=== PATIENT | male | born 1970 | race Caucasian/White ===

== ENCOUNTER 2020-05-18 19:54 | Inpatient (IN) | payer MEDICARE, OTHER ==
[~2020-05-18] VITALS: Ht 175.3 cm; Wt 75.7 kg
[2020-05-18] MEDS ORDERED: ACETAMINOPHEN 325 MG TABLET PO PRN (20:30)
[2020-05-18] MEDS ORDERED: MAGNESIUM HYDROXIDE 30 ML UDC PO PRN (20:30)
[2020-05-18] MEDS ORDERED: BLOOD SUGAR DIAGNOSTIC 1 EACH STRIP IN ONE (20:30)
[2020-05-18 21:00] VITALS: BP 118/51
--- NOTE | 2020-05-18 21:00 | NUR ---
GPS RN-NOTE:ADMISSION ADMITTED A 50-YR OLD MALE, FROM [facility]. ADMITTED ON 5150 FOR GD. PER HOLD, PT. ADMITTED D/T EXTREME AGITATION, BIZARRE BEHAVIOR AND TANGENTIAL THINKING. PT. PRESENTS IRRITABLE, AGITATED, AND PARANOID, WITH DELUSIONS OF PERSECUTION BY GOVERNMENT AND LOCAL POLICE DEPARTMENTS. PT STATES "I KNOW TOO DAMN MUCH, I HAVE A MILLION DOLLAR HIT OUT ON ME" AND YOUR [place] MACHINE OPERATOR WILL BE ON ARRIVAL, YOUR LIVES ARE IN DANGER". PT UNABLE TO ACCESS BASIC NEEDS D/T A MENTAL HEALTH DISORDER. UPON FACE TO FACE ASSESSMENT, PATIENT IS A/OX3, ANXIOUS, RESTLESS, HYPERVERBAL, PREOCCUPIED THOUGHTS AND LABILE MOOD. PT WAS ADVISED OF THE HOLD. PT'S RIGHTS HANDBOOK AND A GUIDE TO PRESCRIPTION MEDICATIONS GIVEN. IN NO APPARENT DISTRESS NOTED. BELONGINGS WERE INVENTORIED AND CHECKED FOR CONTRABAND. PT. IS UNDER THE PSYCHIATRIC CARE OF DR. NAVNEET RANDALL OBTAINED, AND UNDER THE MEDICAL CARE OF DR. LUEVANO. SKIN BODY ASSESSMENT DONE. PT DENIES PAIN/ DISCOMFORT. BED LOCKED AND PLACED IN LOWEST POSITION TO MAINTAIN SAFETY. FALL PRECAUTIONS IMPLEMENTED. WILL CONTINUE TO MONITOR Q15 MINS. FOR SAFETY AND BEHAVIOR. Addendum: 05/19/20 at 0527 by FLORINA TUBBS RN PATIENT DENIES SI/HI OR AVH AT THIS TIME.
[2020-05-18] MEDS: LORAZEPAM 0.5 MG TABLET PO PRN (21:52)
--- NOTE | 2020-05-18 21:53 | NUR ---
GPS-RN NOTE: ANXIETY PATIENT IS ANXIOUS AND RESTLESS. ADMINISTERED ATIVAN 0.5MG PO ORDERED. WILL CONTINUE TO MONITOR.
[2020-05-18] MEDS ORDERED: DIVA-78 PO (22:29)
[2020-05-18] MEDS ORDERED: BENZ1TAB7 PO (22:29)
[2020-05-18] MEDS ORDERED: BUDE10.22 INH (22:29)
[2020-05-18] MEDS ORDERED: OLAN20TA3 PO (22:29)
[2020-05-18] MEDS ORDERED: DIVA500T54 PO (22:29)
[2020-05-18] MEDS ORDERED: PALI9TAB PO (22:29)
[2020-05-18] MEDS ORDERED: IPRA3AMP23 IH (22:38)
[2020-05-18] MEDS ORDERED: NICO-676 TP (22:38)
[2020-05-18] MEDS: TEMAZEPAM 7.5 MG CAPSULE PO PRN (22:39)
--- NOTE | 2020-05-18 22:39 | NUR ---
GPS-RN NOTE: INSOMNIA PATIENT C/O INABILITY TO SLEEP. ADMINISTERED RESTORIL 7.5MG PO ORDERED. WILL CONTINUE TO MONITOR.
[2020-05-19] MEDS: IPRATROPIUM/ALBUTEROL INHALER IH SCH ×2 (06:00)
[2020-05-19 07:48] LABS: ALBUMIN 3.1 g/dL (3.4-5.0); BILIRUBIN,TOTAL 0.4 mg/dL (0.2-1.0); CALCIUM, SERUM 9.1 mg/dL (8.5-10.1); CREATININE 0.9 mg/dL (0.6-1.3); POTASSIUM 4.1 mmol/L (3.5-5.1); TOTAL PROTEIN, SERUM 6.7 g/dL (6.4-8.2)
[2020-05-19 07:49] LABS: CHOLESTEROL 186 mg/dL (<200); HDL CHOLESTEROL 30 mg/dL (40-60); LDL 132 mg/dL (0-99); TRIGLYCERIDES 160 mg/dL (30-150)
[2020-05-19 08:00] VITALS: BP 104/67
--- NOTE | 2020-05-19 08:40 | NUR ---
OPENING NOTES PATIENT RECEIVED WALKING AROUND IN THE HALLWAY. ALERT AND ORIENTED X 3. STABLE ON ROOM AIR, WITH NO SIGNS OF RESPIRATORY DISTRESS. NO DISTRESS NOTED AT THIS TIME. PATIENT DENIES SI/HI AT THIS TIME. DENIES ANY PAIN OR DISCOMFORT AT THIS TIME. SAFETY PRECAUTIONS IMPLEMENTED. WILL CONTINUE TO MONITOR PATIENT Q15 OBSERVATION CHECKS.
[2020-05-19] MEDS: NICOTINE PATCH (21MG) 21 MG PATCH.TD24 TD SCH (09:28)
[2020-05-19] MEDS: FLUTICASONE/VILANTEROL 1 EACH BLST.W.DEV IH SCH (11:21)
--- NOTE | 2020-05-19 12:00 | NUR ---
RN-CO: PAGED DR TOTH REGARDING PATIENT'S HOLD EXPIRING.
[2020-05-19] MEDS ORDERED: ALBUTEROL FS 2.5 MG/3 ML VIAL.NEB NEB PRN (13:30)
[2020-05-19] MEDS ORDERED: IPRATROPIUM NEB FS 0.5 MG/2.5 ML AMPUL.NEB NEB PRN (13:33)
--- NOTE | 2020-05-19 15:29 | NUR ---
GROUP NOTE: Pt was in the activity room, however refused to speak to SW. Pt appears manic and hyperverbal and was pacing back and forth.
[2020-05-19 16:00] VITALS: BP 123/76
[2020-05-19] MEDS: DIVALPROEX SODIUM 250 MG TABLET.DR PO SCH (18:33)
[2020-05-19] MEDS: BENZTROPINE MESYLATE (1 MG) 1 MG TABLET PO SCH (18:33)
[2020-05-19] MEDS: FLUPHENAZINE HCL 10 MG TABLET PO SCH (18:33)
[2020-05-19 20:08] VITALS: BP 138/88
[2020-05-19] MEDS: MAG HYDROX/AL HYDROX/SIMETH 30 ML UDC PO PRN (22:59)
[2020-05-19] MEDS: TEMAZEPAM 7.5 MG CAPSULE PO PRN (22:59)
--- NOTE | 2020-05-19 23:01 | NUR ---
GPS RN NOTES: PATIENT APPROACHED TYPESETTER PERFORATOR OPERATOR COMPLAINING OF UPSET STOMACH. MAALOX GIVEN ORDERED. PATIENT ALSO REQUESTED FOR HIS SLEEPING PILL- RESTORIL 7.5 MG GIVEN PRN ORDER. WILL MONITOR EFFICACY ON THE PATIENT.
--- NOTE | 2020-05-20 03:30 | NUR ---
NURSES NOTES: PATIENT WOKE UP FROM HIS SLEEP AND TOLD THE NURSE TO CHECK HIM SINCE HE HAS PROBLEMS BREATHING. PATIENT OBSERVED TO BE BREATHING NORMALLY AND OKAY, NO DISTRESS NOTED. VITAL SIGNS CHECKED BP150/86 HR83, O2 SAT-93%. EXPLAINED TO AND ASSURED TO HIM THAT HIS VITALS ARE OKAY OF THE MOMENT AND THAT HE WILL BE WATCHED CLOSELY FOR ANY OTHER COMPLAINS. PATIENT THEN CALM DOWN AND WENT BACK TO SLEEP.
[2020-05-20 08:00] VITALS: BP_SYST 114; BP_SYST 96; BP_DIAS 59
[2020-05-20] MEDS: FLUTICASONE/VILANTEROL 1 EACH BLST.W.DEV IH SCH (08:34)
[2020-05-20] MEDS: BENZTROPINE MESYLATE (1 MG) 1 MG TABLET PO SCH ×4 (08:35→16:26)
[2020-05-20] MEDS: DIVALPROEX SODIUM 250 MG TABLET.DR PO SCH ×4 (08:36→16:26)
[2020-05-20] MEDS: NICOTINE PATCH (21MG) 21 MG PATCH.TD24 TD SCH (08:36)
[2020-05-20] MEDS: FLUPHENAZINE HCL 10 MG TABLET PO SCH ×4 (08:36→16:26)
--- NOTE | 2020-05-20 10:32 | NUR ---
[facility]: THELMA received a call from Megan, nurse caser shoe parts at [facility] [phone] providing SW with collateral information. Megan states that pt currently lives at [facility] with his Father and states that his Father has cancer. She also states that pt at his baseline is nice and cooperative but she states that pt has been non-medication compliant and States that when pt does not take his medications he becomes bizarre, aggressive, and very delusional and psychotic. Per Megan, pt is currently on 234mg of Invega Sustenna and states that pt receives it every 21 days and it is due on Saturday05/23/20. THELMA informed Megan that pt is currently refusing medications and that pt has refused to speak with SW and pt is very aggressive and agitated and delusional. She states that she will fax SW pts current medication list. Megan states that pt will return home and that she will be following up with pt at the hospital.
--- NOTE | 2020-05-20 11:55 | NUR ---
WOUND CARE CONSULT: PT REFUSED SKIN ASSESSMENT AND WHEN ASKED ABOUT REDNESS ON HIS FACE HE REPLIED: "I BLEACH MY SKIN LIKE BIRGIT RAINEY. GOT A PROBLEM WITH THAT?" PT IS AMBULATORY. CURRENT MERLINE SCORE IS 22. WILL SEE PRN.
--- NOTE | 2020-05-20 12:06 | NUR ---
INITIAL DISCHARGE PLAN: Per pts nurse pillowcase cutter Elías from [facility] [phone] she states pt will return home [address] [address] once stable for discharge. THELMA will help form a safe and proper discharge in collaboration with . Addendum: 05/20/20 at 1206 by SONIA RENEE Megan nurse pillowcase cutter at [facility] [phone]
[2020-05-20 16:00] VITALS: BP 96/59
[2020-05-20 19:59] VITALS: BP 140/78
[2020-05-20] MEDS: LORAZEPAM 0.5 MG TABLET PO PRN (21:27)
--- NOTE | 2020-05-20 21:34 | NUR ---
NURSES NOTES: PATIENT NOTED TO BE PACING IN THE HALLWAY AT THIS TIME. HE IS TALKING NONSENSICAL STUFF, THE FLIGHT OF IDEAS NOTED. REQUESTED FOR HIS ATIVAN MEDICATION. ATIVAN 0.5 MG GIVEN ORALLY PRN ORDER. WILL MONITOR PATIENT AND EFFICACY OF MEDICATION.
[2020-05-20] MEDS: TEMAZEPAM 7.5 MG CAPSULE PO PRN (22:25)
[2020-05-21 08:00] VITALS: BP 124/69
[2020-05-21] MEDS: BENZTROPINE MESYLATE (1 MG) 1 MG TABLET PO SCH ×3 (09:29→16:10)
[2020-05-21] MEDS: NICOTINE PATCH (21MG) 21 MG PATCH.TD24 TD SCH (09:29)
[2020-05-21] MEDS: FLUTICASONE/VILANTEROL 1 EACH BLST.W.DEV IH SCH (09:30)
[2020-05-21] MEDS: FLUPHENAZINE HCL 10 MG TABLET PO SCH ×3 (09:30→16:10)
[2020-05-21] MEDS: DIVALPROEX SODIUM 250 MG TABLET.DR PO SCH ×3 (09:30→16:10)
[2020-05-21 16:00] VITALS: BP 127/56
[2020-05-22] MEDS: TEMAZEPAM 7.5 MG CAPSULE PO PRN (00:11)
[2020-05-22] MEDS: LORAZEPAM 0.5 MG TABLET PO PRN ×3 (01:48→22:57)
--- NOTE | 2020-05-22 01:48 | NUR ---
GPS RN NOTE, PATIENT HAS A COMPLAINT OF FEELING ANXIOUS AND IS REQUESTING ATIVAN AT THIS TIME. PATIENT VITAL SIGNS ARE STABLE. GAVE ATIVAN 0.5 MG PO Q6HR PRN ORDERED. WILL REASSESS FOR ANXIETY AND I WILL CONTINUE TO MONITOR THIS PATIENT WITH THE HELP OF STAFF.
[2020-05-22 04:24] VITALS: BP 121/82
[2020-05-22 08:00] VITALS: BP 102/60
[2020-05-22] MEDS: NICOTINE PATCH (21MG) 21 MG PATCH.TD24 TD SCH (09:02)
[2020-05-22] MEDS: DIVALPROEX SODIUM 250 MG TABLET.DR PO SCH ×4 (09:02→21:28)
[2020-05-22] MEDS: FLUTICASONE/VILANTEROL 1 EACH BLST.W.DEV IH SCH (09:02)
[2020-05-22] MEDS: BENZTROPINE MESYLATE (1 MG) 1 MG TABLET PO SCH ×3 (09:02→17:02)
[2020-05-22] MEDS: FLUPHENAZINE HCL 10 MG TABLET PO SCH ×3 (09:02→17:02)
--- NOTE | 2020-05-22 15:19 | NUR ---
RN-CO: Patient is hyperactive , Ativan 0.5 mg po given.
[2020-05-22 16:00] VITALS: BP 124/69
[2020-05-22 20:04] VITALS: BP 121/66
[2020-05-22 20:06] VITALS: BP 121/66
[2020-05-23 08:00] VITALS: BP 108/74
[2020-05-23] MEDS: FLUPHENAZINE HCL 10 MG TABLET PO SCH ×3 (08:23→16:26)
[2020-05-23] MEDS: NICOTINE PATCH (21MG) 21 MG PATCH.TD24 TD SCH (08:23)
[2020-05-23] MEDS: FLUTICASONE/VILANTEROL 1 EACH BLST.W.DEV IH SCH (08:24)
[2020-05-23] MEDS: DIVALPROEX SODIUM 250 MG TABLET.DR PO SCH ×4 (08:24→21:18)
[2020-05-23] MEDS: BENZTROPINE MESYLATE (1 MG) 1 MG TABLET PO SCH ×3 (08:24→16:26)
--- NOTE | 2020-05-23 14:31 | NUR ---
GROUP NOTE: Pt was present during group therapy, pt appeared with a much calmer mood and was engaged in conversation. Pts mood and medication compliance was discussed. Pt states he wants to take his medication so he can be discharged to his home soon. Pt reports that he is feeling better and has made friends in the unit.
[2020-05-23 16:00] VITALS: BP 108/74
--- NOTE | 2020-05-23 18:31 | NUR ---
rn notes patient remains a/o x3 and shows no SI. Ambulatory with steady gait, able to mingle with other patients in the activity room. Med compliant
[2020-05-23 19:55] VITALS: BP 120/59
[2020-05-23] MEDS ORDERED: FLUPHENAZINE HCL 10 MG TABLET PO SCH (22:00)
[2020-05-24 08:04] VITALS: BP 101/72
[2020-05-24] MEDS: DIVALPROEX SODIUM 250 MG TABLET.DR PO SCH ×4 (10:51→20:46)
[2020-05-24] MEDS: FLUTICASONE/VILANTEROL 1 EACH BLST.W.DEV IH SCH (10:51)
[2020-05-24] MEDS: NICOTINE PATCH (21MG) 21 MG PATCH.TD24 TD SCH (10:52)
[2020-05-24] MEDS: FLUPHENAZINE HCL 10 MG TABLET PO SCH ×3 (10:52→21:54)
[2020-05-24] MEDS: BENZTROPINE MESYLATE (1 MG) 1 MG TABLET PO SCH ×3 (10:52→17:35)
--- NOTE | 2020-05-24 11:02 | NUR ---
JUST WOKE UP AND GIVEN AM MEDS.
--- NOTE | 2020-05-24 14:29 | NUR ---
GROUP NOTE: Pt was asleep and not easily roused by verbal cues.
[2020-05-24 15:57] VITALS: BP 99/74
--- NOTE | 2020-05-24 18:00 | NUR ---
no change in status.
[2020-05-24 20:10] VITALS: BP 116/68
[2020-05-24 22:57] VITALS: BP 117/73
[2020-05-24] MEDS: TEMAZEPAM 7.5 MG CAPSULE PO PRN (23:01)
--- NOTE | 2020-05-24 23:02 | NUR ---
GPS RN NOTES: INSOMNIA PT C/O UNABLE TO SLEEP. PT REQUESTED SLEEPING MEDICATION. CHECKED VITALS WNL. OFFERED RESTORIL 7.5 MG PO PRN ORDERED. PT AGREED AND TOLERATED MEDICATION WELL. CONTINUE TO MONITOR.
[2020-05-25 08:00] VITALS: BP 105/58
[2020-05-25] MEDS: NICOTINE PATCH (21MG) 21 MG PATCH.TD24 TD SCH (09:01)
[2020-05-25] MEDS: BENZTROPINE MESYLATE (1 MG) 1 MG TABLET PO SCH ×3 (09:01→16:25)
[2020-05-25] MEDS: FLUTICASONE/VILANTEROL 1 EACH BLST.W.DEV IH SCH (09:01)
[2020-05-25] MEDS: FLUPHENAZINE HCL 10 MG TABLET PO SCH ×3 (09:01→21:16)
[2020-05-25] MEDS: DIVALPROEX SODIUM 250 MG TABLET.DR PO SCH ×4 (09:01→20:33)
--- NOTE | 2020-05-25 13:53 | NUR ---
GROUP NOTE: Pt was present during group therapy, pt appeared with a much calmer mood and was engaged in conversation. Pt stated that he wants to be discharged already and wants to go home and look for work so he can bring his and kids to [place] from [place]. Pt states he came to [place] to better his life but then was unable to find employment and his mental health decompensated. Pt asked SW to speak to the MD regarding his discharge.
[2020-05-25 16:00] VITALS: BP 130/65
--- NOTE | 2020-05-25 19:17 | NUR ---
GPS RN NOTES: CONSTIPATION PT C/O OF CONSTIPATION. OFFERED MOM PRN PO ORDERED. PT AGREED AND TOLERATED MEDICATION WELL. CONTINUE TO MONITOR.
[2020-05-25 20:05] VITALS: BP 129/86
[2020-05-25] MEDS: TEMAZEPAM 7.5 MG CAPSULE PO PRN (22:11)
[2020-05-25] MEDS: MAG HYDROX/AL HYDROX/SIMETH 30 ML UDC PO PRN (22:12)
--- NOTE | 2020-05-25 22:21 | NUR ---
GPS RN NOTE: INSOMNIA & INDIGESTION PT WAS COMPLAINING THAT HE COULD NOT SLEEP AND HAD INDIGESTION AND WANTED TO TAKE SOMETHING FOR THE TWO. ADMINISTERED RESTORIL 7.5MG PRN @2210 AND MAALOX SUSP UDC 30 ML PRN @ 2216. WILL REASSESS @ 2310 AND MONITOR Q15 MIN FOR SAFETY AND BEHAVIOR.
[2020-05-26 08:00] VITALS: BP 100/56
--- NOTE | 2020-05-26 08:26 | NUR ---
TRANSPORTATION: SW contacted [facility] Department ([phone]) to arrange transportation for pt. THELMA will receive a call back to confirm potato picker time for Saturday05/27/20.
--- NOTE | 2020-05-26 08:27 | NUR ---
[facility] THELMA contacted Megan, nurse home health care case manager at [facility] [phone] to inform her pt will be discharged Saturday05/27/20. Megan requested clinical information be faxed to and stated she will follow up with pt at home on Saturday05/27/20 at 4:00pm.
--- NOTE | 2020-05-26 08:58 | NUR ---
[facility]: THELMA faxed clinicals to Megan, nurse casey saw operator at [facility] [phone] .
--- NOTE | 2020-05-26 09:21 | NUR ---
TRANSPORTATION: SW received a call from Hodan Brewer from [facility] [phone] stating that pt will be picked at 1:00pm.
[2020-05-26] MEDS: BENZTROPINE MESYLATE (1 MG) 1 MG TABLET PO SCH ×3 (09:26→16:28)
[2020-05-26] MEDS: FLUTICASONE/VILANTEROL 1 EACH BLST.W.DEV IH SCH (09:26)
[2020-05-26] MEDS: DIVALPROEX SODIUM 250 MG TABLET.DR PO SCH ×3 (09:26→16:28)
[2020-05-26] MEDS: NICOTINE PATCH (21MG) 21 MG PATCH.TD24 TD SCH (09:26)
[2020-05-26] MEDS: FLUPHENAZINE HCL 10 MG TABLET PO SCH ×3 (09:26→22:09)
--- NOTE | 2020-05-26 14:18 | NUR ---
GROUP NOTE: Group Topic was on how to manage stress. Patient was able to engage in group. Patient was able to engage and interact with peers. Patient was able to state that when he Addendum: 05/26/20 at 1420 by THELMA PADILLA GROUP NOTE: Group Topic was on how to manage stress. Patient was able to engage in group. Patient was able to engage and interact with peers. Patient was able to state that when he is stressed out he walks out of the situation or goes to his room to "check out". This technical publications writer actively listened and provided support.
[2020-05-26 16:00] VITALS: BP 134/57
[2020-05-26] MEDS: DIVALPROEX SODIUM 500 MG TABLET.DR PO SCH (20:43)
[2020-05-26 20:47] VITALS: BP 128/74
[2020-05-26] MEDS: MAG HYDROX/AL HYDROX/SIMETH 30 ML UDC PO PRN (20:53)
--- NOTE | 2020-05-26 20:54 | NUR ---
GPS-RN NOTE: VOMITING PATIENT WAS THROWING UP IN LARGE AMOUNT OF FOOD CONTENT X1. V/S WNL. DENIES ANY PAIN AT THIS TIME. ADMINISTERED MAALOX 30ML PO ORDERED. WILL CONTINUE TO MONITOR.
[2020-05-27 08:00] VITALS: BP 100/55
--- NOTE | 2020-05-27 08:01 | NUR ---
Social Work Discharge Note: Patient will be discharged via [facility] at 1:00PM home [address] [id number]. Megan, nurse bilingual case manager at [facility] [phone] has been notified. Per Megan, nurse will follow-up with patient at 4PM. Patient will follow-up with (new psychiatrist) at [facility] Address: [facility] [place] [address] ) and (Customer Advisor Specialist) Dr. Alona Dunaway [address] [place] [phone] ([phone]). Patient presented with euthymic mood and congruent affect.
[2020-05-27] MEDS: DIVALPROEX SODIUM 500 MG TABLET.DR PO SCH (08:30)
[2020-05-27] MEDS: BENZTROPINE MESYLATE (1 MG) 1 MG TABLET PO SCH ×3 (08:30→16:29)
[2020-05-27] MEDS: FLUPHENAZINE HCL 10 MG TABLET PO SCH ×2 (08:31→16:32)
[2020-05-27] MEDS: NICOTINE PATCH (21MG) 21 MG PATCH.TD24 TD SCH (08:31)
[2020-05-27] MEDS: FLUTICASONE/VILANTEROL 1 EACH BLST.W.DEV IH SCH (08:33)
--- NOTE | 2020-05-27 11:50 | NUR ---
[facility]: Megan, nurse lead case manager at [facility] [phone], contacted the and stated that the pt goes to [facility] (phone: [phone]; fax: [phone]). She stated that she would like to have the medications called in.
[2020-05-27] MEDS ORDERED: DIVALPROEX SODIUM 250 MG TABLET.DR PO SCH (13:00)
--- NOTE | 2020-05-27 13:55 | NUR ---
Social Work Transportation Note: SW contacted [facility] ([phone]) to follow up on pt's transportation per television equipment operator Bean he stated that the sales route driver helper is on his way.
--- NOTE | 2020-05-27 14:52 | NUR ---
Social Work Group Note: sanitation worker invited pt to participate in group. Pt stated that he is anxious and is waiting for her transportation. Pt did not want to join.
--- NOTE | 2020-05-27 15:43 | NUR ---
Social Work Transportation Note: SW contacted [facility] ([phone]) to follow up on pt's transportation per pump operator byproducts Bena stated that the hazmat cdl a driver will be here at a later time.
[2020-05-27 16:00] VITALS: BP 131/76
--- NOTE | 2020-05-27 16:19 | NUR ---
Social Work Transportation Note: SW contacted [facility] ([phone]) to follow-up on pt's transportation, per Stephon he at 5:30PM-6PM.
--- NOTE | 2020-05-27 18:05 | NUR ---
GPS RN NOTES Followed up with [facility] at in regards to ETA picker machine operator time. Spoke with Stephon. Per Stephon, there [place] the [address] and the new ETA picker machine operator time expected in 1 hour. Patient in stable condition. Will continue to monitor.
--- NOTE | 2020-05-27 19:00 | NUR ---
GPS BROADBAND INSTALLER NOTES Patient discharged for home at this time. Patient in stable condition. VS stable with no acute distress. Breathing even and unlabored on room air with no respiratory distress. Denies pain. No signs and symptoms of pain. Skin intact. Refused skin assessment photos. Patient ambulatory. Denies SI/HI at this time. Medication reconciliation and discharge orders reviewed and explained to Patient. Patient verbalized understanding. Provided prescriptions for psych medications. Per Patient, refused Fluticasone and Nicotine Patch prescriptions. Per Patient, he has those medications already. All belongings with Patient. Patient will follow up with Psych MD and PCP. [facility]
== END 2020-05-27 19:30 | DRG 885 ==
LOC: GPS 19:54 → EDBD 19:54
PROVIDERS: ADMIT Psychiatry & Neurology Psychiatry
DX: F31.2 Bipolar disorder, current episode manic severe with psychotic features (principal); F29 Unspecified psychosis not due to a substance or known physiological condition; G47.00 Insomnia, unspecified; Z91.14 Patient's other noncompliance with medication regimen; F17.200 Nicotine dependence, unspecified, uncomplicated; J44.9 Chronic obstructive pulmonary disease, unspecified
CPT/HCPCS: 36415; 80053-TC; 80061-TC; 80164-TC; 82962-TC; 87081-TC